=== PATIENT | male | born 1975 | race African-American/Black ===

== ENCOUNTER 2020-12-13 23:14 | Emergency (ER) | payer SELFPAY ==
[~2020-12-13] VITALS: Ht 175.3 cm; Wt 90.9 kg
[2020-12-14 02:16] VITALS: BP 142/87
== END 2020-12-14 02:32 ==
LOC: ED 12-14 01:59
DX: M25.572 Pain in left ankle and joints of left foot (principal); G89.29 Other chronic pain
CPT/HCPCS: 99283